=== PATIENT | female | born 1950 | race African-American/Black ===

== ENCOUNTER → 2016-11-09 | Outpatient (CLI) | payer OTHER ==
--- NOTE | ~2016-11-09 | MY29 ---
[facility] A Service of [facility] RADIOLOGY TEXT RESULTS PATIENT: ARA COFFMAN LOCATION: [facility] : 52 UNIT #: [id number] AGE: [address]: BECKIE PIMENTEL MD SEX: F ORDER DR: [id number] [facility] [address] [place], [place] [address] [id number] O MR#: [id number] Acc #: [id number] NAME: ARA COFFMAN : 1950 SEX: F STUDY DATE/TIME: 11/09/2016 8:56 UNIT: [facility] ROOM: STUDY DESCRIPTION: MY MILEY SCREENING W/ CAD BILAT Attending Physician: Beckie Pimentel M.D. Referring Physician: Beckie Pimentel M.D. Ordering Physician: Beckie Pimentel M.D. Primary Care Physician: Beckie Pimentel M.D. MEDICAL IMAGING REPORT This report is preliminary unless electronic signature is present EXAM Digital screening mammogram 11/09/2016 HISTORY 66-year-old woman positive family history, maternal aunt postmenopausal. Previous aspiration/biopsy. Annual screen. COMPARISON 03/12/2013, 11/18/2014. FINDINGS Digital imaging of each breast was completed utilizing screening protocol. Biopsy marker was placed left periareolar location. Review includes FDA-approved CAD device. Breast parenchyma remains dense with a fibroglandular pattern in each breast. I see no developing mass or interval occurring microcalcifications. There is no suspicious architectural deformity. IMPRESSION Stable benign mammogram. Annual screening recommended. Patients over the age of 40 are entered into a reminder system with target due date for the next mammogram. A result letter will also be sent to the patient. BIRADS: 2 Benign finding Dictated by... James Bkaer M.D. THIS IS AN ELECTRONICALLY VERIFIED REPORT James Baker M.D. at 11/09/2016 3:50 PM [facility] A Service of [facility] RADIOLOGY TEXT RESULTS PATIENT: ARA COFFMAN LOCATION: [facility] : 52 UNIT #: [id number] AGE: [address]: BECKIE PIMENTEL MD SEX: F ORDER DR: ALEJANDRA/merry TD: 11/09/2016 14:13 JOB #: [id number] MEDICAL IMAGING REPORT Page 1 of 1 COPY
== END | disposition home or self-care (01) ==
LOC: CWCC 08:30
DX: Z12.31 Encounter for screening mammogram for malignant neoplasm of breast (principal); Z80.3 Family history of malignant neoplasm of breast; Z98.890 Other specified postprocedural states
CPT/HCPCS: G0202